=== PATIENT | male | born 1990 | race Caucasian/White ===

== ENCOUNTER 2017-01-07 22:50 | Emergency (ER) | payer OTHER ==
--- NOTE | ~2017-01-07 | CT16 ---
[facility] A Service of [facility] RADIOLOGY TEXT RESULTS PATIENT: YESENIA EPSTEIN LOCATION: NICK : [birth year] UNIT #: [id number] AGE: [address]: Aroldo Babcock DO SEX: M ORDER DR: [id number] [facility] [address] [place], [place] [address] [id number] E MR#: [id number] #: [id number] NAME: YESENIA EPSTEIN : 1990 SEX: M STUDY DATE/TIME: 01/08/2017 4:29 UNIT: [facility] ROOM: STUDY DESCRIPTION: CT Angio Chest for PE Attending Physician: Aroldo Babcock D.O. Ordering Physician: Aroldo Babcock D.O. Primary Care Physician: Rex Burns M.D. MEDICAL IMAGING REPORT This report is preliminary unless electronic signature is present EXAM CTA chest PE protocol INDICATION Inspiratory chest pain since Friday. PROCEDURE Contrast-enhanced CTA of the chest attention on opacification of the pulmonary arteries. Coronal 3-D MIP sagittal reformatted images reconstructed and submitted. This CT examination was performed with one or more of the following radiation dose reduction techniques: automatic exposure control, adjustment of mA and/or kV according to patient size, and iterative reconstruction. COMPARISON None. FINDINGS Suboptimal contrast bolus. No definitive evidence for large central pulmonary embolus. No evidence for acute aortic injury. No adenopathy. No acute findings in the included upper abdomen. Lungs are clear. No aggressive appearing bone lesion. IMPRESSION No evidence for pulmonary embolus. No acute findings. Dictated by... Gustavo Mckinney M.D. THIS IS AN ELECTRONICALLY VERIFIED REPORT Gustavo Mckinney M.D. at 01/08/2017 10:12 PM EED/shilpis [facility] A Service [facility] RADIOLOGY TEXT RESULTS PATIENT: YESENIA EPSTEIN LOCATION: NICK : 92 UNIT #: [id number] AGE: [address]: Aroldo Babcock DO SEX: M ORDER DR: TD: 01/08/2017 10:10 JOB #: [id number] MEDICAL IMAGING REPORT Page 1 of 1 COPY
--- NOTE | ~2017-01-07 | EKG ---
PATIENT: YESENIA EPSTEIN UNIT #: [id number] Ventricular Rate: 74 BPM Atrial Rate: 74 BPM P-R Interval: 134 ms QRS Duration: 98 ms Q-T Interval: 404 ms QTC Calculation(Bezet): 448 ms P Holley: 16 degrees Calculated R Holley: 57 degrees Calculated T Holley: 48 degrees Diagnosis Line: Normal sinus rhythm Diagnosis Line: Normal ECG Diagnosis Line: No previous ECGs available Diagnosis Line: Confirmed by FRANK ARMSTRONG MD ([id number]) on Diagnosis Line: 01/08/2017 2:01:08 PM INTERPRETING MD: NATHANIEL JORDAN
--- NOTE | ~2017-01-07 | CR72 ---
[facility] A Service of [facility] RADIOLOGY TEXT RESULTS PATIENT: YESENIA EPSTEIN LOCATION: [facility] : [birth year] UNIT #: [id number] AGE: [address]: Aroldo Babcock DO SEX: M ORDER DR: [id number] [facility] [address] [place], [place] [address] [id number] E MR#: [id number] Acc #: [id number] NAME: YESENIA EPSTEIN : 1990 SEX: M STUDY DATE/TIME: 01/08/2017 2:22 UNIT: [facility] ROOM: STUDY DESCRIPTION: CR Chest Single View Portable Attending Physician: Aroldo Babcock D.O. Ordering Physician: Aroldo Babcock D.O. Primary Care Physician: Rex Burns M.D. MEDICAL IMAGING REPORT This report is preliminary unless electronic signature is present EXAM Portable chest INDICATION Chest pain and shortness of air for the past 3 days. PROCEDURE Frontal view chest. COMPARISON None. FINDINGS Heart size normal. The lungs are clear. No pleural fluid or pneumothorax. IMPRESSION No active process. Dictated by... Gustavo Mckinney M.D. THIS IS AN ELECTRONICALLY VERIFIED REPORT Gustavo Mckinney M.D. at 01/08/2017 10:09 PM ELEONORA/cielo TD: 01/08/2017 09:42 JOB #: [id number] MEDICAL IMAGING REPORT Page 1 of 1 COPY
[~2017-01-07 22:50] MED LIST: AMOXIL500 MG PO; AUGMENTIN875 M1 PO; MEDROL PO; PERCOCET 7.5-31 EACH PO
[2017-01-08 02:21] LABS: POC - CKMB <1.0 ng/mL (0.0-7.9); POC - TROPONIN <0.05 ng/mL (<=0.05)
[2017-01-08 03:17] LABS: CALCIUM SERUM 9.2 mg/dL (8.4-10.2); GLOM FILT RATE Estimated 104.9 mL/min (>60); POTASSIUM 3.6 mmol/L (3.5-5.1)
[2017-01-08 03:53] LABS: POC - CKMB <1.0 ng/mL (0.0-7.9); POC - TROPONIN <0.05 ng/mL (<=0.05)
== END 2017-01-08 06:02 | disposition home or self-care (01) ==
LOC: CED 22:50
PROVIDERS: Emergency Medicine
DX: R07.89 Other chest pain (principal)
CPT/HCPCS: 36415; 71010; 71275; 80048; 82553; 84484; 85379; 93005; 99284; Q9967